=== PATIENT | female | born 1935 | race Caucasian/White ===

== ENCOUNTER → 2016-12-28 | Outpatient (CLI) | payer MEDICARE ==
--- NOTE | 2016-12-29 09:17 | MM ---
Reason for exam: screening (asymptomatic). Last mammogram was performed 1 year ago. History: Patient is postmenopausal. Benign excisional biopsy of the right breast, 2001. Took estrogen for 10 years beginning at age 56. Took progesterone for 10 years beginning at age 56. Physical Findings: A clinical breast exam by your physician is recommended on an annual basis and results should be correlated with mammographic findings. MG 3D Screening Mammo W/Cad Bilateral CC and MLO view(s) were taken. Prior study comparison: December 24, 2015, bilateral MG 3d screening mammo w/cad. December 22, 2014, bilateral MG screening mammo w CAD. November 13, 2013, bilateral MG screening mammo w CAD. There are scattered fibroglandular densities. A 4mm nodular asymmetry inferior right breast appears to persist on the tomosynthesis images. Further evaluation is recommended. ASSESSMENT: Incomplete: need additional imaging evaluation, BI-RAD 0 RECOMMENDATION: Special view mammogram of the right breast. If lesion persists on supplemental views, image directed ultrasound is recommended. [facility] will attempt to contact patient to return for supplemental views and ultrasound if indicated.
== END | disposition home or self-care (01) ==
LOC: RADMAMWWP 10:49
PROVIDERS: ATTEND Family Medicine
DX: Z12.31 Encounter for screening mammogram for malignant neoplasm of breast (principal)
CPT/HCPCS: 77063; G0202

== ENCOUNTER → 2017-01-02 | Outpatient (CLI) | payer MEDICARE ==
--- NOTE | 2017-01-02 11:21 | MM ---
Reason for exam: additional evaluation requested from abnormal screening. Last mammogram was performed less than 1 month ago. History: Patient is postmenopausal. Benign excisional biopsy of the right breast, 2001. Took estrogen for 10 years beginning at age 56. Took progesterone for 10 years beginning at age 56. Physical Findings: Nurse did not find any significant physical abnormalities on exam. MG 3D Work Up W/Cad RT LM and spot compression MLO view(s) were taken of the right breast. Prior study comparison: December 28, 2016, bilateral MG 3d screening mammo w/cad. December 24, 2015, bilateral MG 3d screening mammo w/cad. There are scattered fibroglandular densities. The asymmetric density disperses on additional views. These results were verbally communicated with the patient and result sheet given to the patient on 01/02/17. ASSESSMENT: Negative, BI-RAD 1 RECOMMENDATION: Return to routine screening mammogram schedule for both breasts.
== END | disposition home or self-care (01) ==
LOC: RADMAMWWP 10:13
PROVIDERS: ATTEND Family Medicine
DX: R92.8 Other abnormal and inconclusive findings on diagnostic imaging of breast (principal)
CPT/HCPCS: G0206; G0279

== ENCOUNTER → 2018-06-18 | Outpatient (CLI) | payer MEDICARE ==
--- NOTE | 2018-06-19 08:19 | MM ---
Reason for exam: screening (asymptomatic). Last mammogram was performed 1 year and 6 months ago. History: Patient is postmenopausal. Benign excisional biopsy of the right breast, 2001. Took estrogen for 10 years beginning at age 56. Took progesterone for 10 years beginning at age 56. Physical Findings: A clinical breast exam by your physician is recommended on an annual basis and results should be correlated with mammographic findings. MG Screening Mammo w CAD Bilateral CC, MLO, and XCCL view(s) were taken. Prior study comparison: January 02, 2017, right breast MG 3d work up w/cad RT. December 28, 2016, bilateral MG 3d screening mammo w/cad. The breast tissue is heterogeneously dense. This may lower the sensitivity of mammography. No suspicious abnormality. No significant changes when compared with prior studies. ASSESSMENT: Negative, BI-RAD 1 RECOMMENDATION: Routine screening mammogram of both breasts in 1 year.
== END | disposition home or self-care (01) ==
LOC: RADMAMWWP 11:05
PROVIDERS: ATTEND Family Medicine
DX: Z12.31 Encounter for screening mammogram for malignant neoplasm of breast (principal)
CPT/HCPCS: 77067

== ENCOUNTER 2020-02-03 05:04 | Emergency (ER) | payer MEDICARE ==
[2020-02-03 05:18] VITALS: BP 150/84; PULSE 87; RESP 18; TEMP 98
--- NOTE | 2020-02-03 05:51 | ED ---
Fall HPI - General Chief Complaint: Fall Stated Complaint: Fall,Shoulder Pain Time Seen by Provider: 02/03/20 05:28 Source: patient, family Mode of arrival: wheelchair - History of Present Illness Initial Comments: Lissett king 84-year-old female presents the ER this morning rivate vehicle for evaluation of left shoulder pain after a fall at home. patient reports that she woke this morning, she did not want to turn on the lights disturb her , she was sitting on the side of the bed when she slipped off landing on her left shoulder. She did not hit her head she did not lose consciousness. She reports pain in her left lateral shoulder. She denies other injuries or complaints. No history of previous injury to this arm. - Related Data Allergies Allergy/AdvReac Type Severity Reaction Status Date / Time Penicillins Allergy Rash/Hives Verified 02/03/20 05:19 Review of Systems ROS Statement: Those systems with pertinent positive or pertinent negative responses have been documented in the HPI. ROS Other: All systems not noted in ROS Statement are negative. Past Medical History Additional Past Medical History / Comment(s): anemia History of Any Multi-Drug Resistant Organisms: None Reported Past Surgical History: Appendectomy, Section, Tonsillectomy Past Psychological History: No Psychological Hx Reported Smoking Status: Never smoker Past Alcohol Use History: Rare Past Drug Use History: None Reported General Exam - General Exam Comments Initial Comments: Physical Exam GENERAL: Patient is well-developed and well-nourished. Patient is nontoxic and well-hydrated and is in no distress. HENT: Normocephalic, Atraumatic. EYES: PERRL, EOMI PULMONARY: Unlabored respirations. CARDIOVASCULAR: RRR Warm and well perfused extremities ABDOMEN: Non-distended SKIN: No rashes or bruising : Deferred NEUROLOGIC: Alert and oriented Normal speech Normal gait MUSCULOSKELETAL: Decreased ROM of left shoulder due to pain - point tenderness to lateral humerus PSYCHIATRIC: No SI/HI Limitations: no limitations Course Vital Signs 02/03/20 05:13 Temperature 98 F Pulse Rate 87 Respiratory 18 Rate Blood Pressure 150/84 O2 Sat by Pulse 97 Oximetry Medical Decision Making - Medical Decision Making patient was seen and evaluated history was obtained from the patient and at bedside X-rays were obtained and I reviewed the x-rays and will see any obvious fracture X-rays were reviewed by radiology there is suggestion of a possible linear abnormality in the scapula however patient has absolutely no tenderness in this region I do not feel she has a fracture at this area and do not feel CT is warranted Patient's resting comfortably and comfortable with the plan for discharge home Disposition Clinical Impression: Fall Disposition: HOME SELF-CARE Condition: Stable Additional Instructions: As we discussed there is no xray findings to suggest arm/shoulder fracture, you are likely just bruised Take tylenol/motrin, apply ice and get some rest Return to the ER for any worsening or development of new or concerning symptoms Is patient prescribed a controlled substance at d/c from ED?: No Referrals: Shelia Booth DO [Primary Care Provider] - 1-2 days
--- NOTE | 2020-02-03 06:25 | XR ---
EXAM: XR Left Shoulder Complete, 2 or More Views CLINICAL HISTORY: ITS.REASON XR Reason: fall, inj TECHNIQUE: Two or more views of the left shoulder. COMPARISON: No relevant prior studies available. FINDINGS/IMPRESSION: Mild linear lucency within the scapular body, correlate for site of pain. If there is pain in this region, this finding may represent a nondisplaced fracture and should be correlated with CT scan. No acute fracture or dislocation. The greater tuberosity is intact. The joint spaces are preserved. Mild osseous demineralization.
== END 2020-02-03 06:41 | disposition home or self-care (01) ==
LOC: EC 05:04
DX: M25.512 Pain in left shoulder (principal); Z88.0 Allergy status to penicillin
CPT/HCPCS: 99283